=== PATIENT | male | born 1980 | race Caucasian/White ===

== ENCOUNTER 2016-11-24 15:33 | Emergency (ER) | payer SELFPAY ==
--- NOTE | 2016-11-24 16:01 | EDM.PDOC ---
ED HPI GENERAL MEDICAL PROBLEM - General Stated Complaint: SLIPPED AND FELT Time Seen by Provider: 11/24/16 15:51 Source of Information: Reports: Patient History Limitations: Reports: No limitations - History of Present Illness INITIAL COMMENTS - FREE TEXT/NARRATIVE: HISTORY AND PHYSICAL: History of present illness: Patient is a 36-year-old male who presents to the ED for evaluation of injuries that he states he sustained about 1 AM today at [employer] on a freshly waxed floor. He states he slipped landing forward on his arm and knee and then tried to get back up and fell again and try to get back up and fell again. During these episodes he has injured his hip and back and the palms of both hands and the right elbow and both knees and the right ankle. He has been walking around but he states he has been limping because of pain. He did not hit his head or lose consciousness and he denies any neck pain. He is not having thigh or calf pain but has pain in all his joints. At one point he stated that he landed directly on the left knee and twisted the right knee and then his story was that he landed directly on the R knee and twisted the left knee. 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 Review of systems: As per history of present illness and below otherwise all systems reviewed and negative. Past medical history: As per history of present illness and as reviewed below otherwise noncontributory. Surgical history: As per history of present illness and as reviewed below otherwise noncontributory. Social history: No reported history of drug or alcohol abuse. Family history: As per history of present illness and as reviewed below otherwise noncontributory. Physical exam: HEENT: Atraumatic, normocephalic, pupils reactive, negative for conjunctival pallor or scleral icterus, mucous membranes moist, throat clear, neck supple, nontender, trachea midline. Lungs: Clear to auscultation, breath sounds equal bilaterally, chest nontender. Heart: S1S2, regular, negative for clicks, rubs, or JVD. Abdomen: Soft, nondistended, nontender. Negative for masses or hepatosplenomegaly. Negative for costovertebral tenderness. Back: No deformities or step offs or vertebral point tenderness, other than mild in the low lumbar spine. Normal range motion. Pelvis: Stable nontender. Genitourinary: Deferred. Rectal: Deferred. Extremities: Atraumatic, negative for cords or calf pain. Neurovascular unremarkable. Neuro: Awake, alert, oriented. Cranial nerves II through XII unremarkable. Cerebellum unremarkable. Motor and sensory unremarkable throughout. Exam nonfocal. Diagnostics: Xrays - lumbar spine, right elbow, bilateral knees, right ankle Impression: Fall Plan: Patient had no evidence of trauma anywhere. No bruising, swelling, abrasions. He had normal gait, normal range of motion, normal strength. I informed him of his xray findings which were all negative, other than a mild wedge compression at L1. This is not where the patient's pain is and he did not fall on his buttocks so mechanism does not support this injury. I advised rest and antiinflammatories and follow up with PCP as needed. Definitive disposition and diagnosis as appropriate pending reevaluation and review of above. Right Elbow Pain Score (Numeric/FACES): 9 - Related Data Allergies Allergy/AdvReac Type Severity Reaction Status Date / Time metaproterenol [From Alupent] Allergy palpitation Verified 07/17/16 11:50 s Home Meds: Home Meds Albuterol [IJD: Albuterol HFA] 2 puff INH Q6HR PRN #8 gm 07/17/16 [Rx] Albuterol [Ventolin HFA] 07/17/16 [History] traMADol [Ultram] 50 mg PO Q8H PRN #10 tablet 07/17/16 [Rx] Past Medical History HEENT History: Reports: None Cardiovascular History: Reports: None Respiratory History: Reports: Asthma Gastrointestinal History: Reports: None Neurological History: Reports: None Psychiatric History: Reports: None - Past Surgical History HEENT Surgical History: Reports: None Respiratory Surgical History: Reports: None Musculoskeletal Surgical History: Reports: Other (see below) Other Musculoskeletal Surgeries/Procedures:: right hip surgery Social & Family History - Family History Family Medical History: Noncontributory - Tobacco Use Smoking Status *Q: Current Every Day Smoker Years of Tobacco use: 5 Packs/Tins Daily: 0.2 ED ROS GENERAL - Review of Systems Review Of Systems: ROS reveals no pertinent complaints other than HPI. ED EXAM, GENERAL - Physical Exam Exam: See Below (See HPI) Course - Vital Signs Last Recorded V/S: Last Vital Signs Temp 36.9 C 11/24/16 15:46 Pulse 90 11/24/16 15:46 Resp 18 11/24/16 15:46 BP 156/98 H 11/24/16 15:46 Pulse Ox 98 11/24/16 15:46 - Orders/Labs/Meds Orders: Active Orders 24 hr Category Date Time Status Ankle 2V Rt [CR] Stat Exams 11/24/16 16:02 Taken Elbow Min 3V Rt [CR] Stat Exams 11/24/16 16:02 Ordered Knee 3V Lt [CR] Stat Exams 11/24/16 16:02 Ordered Knee 3V Rt [CR] Stat Exams 11/24/16 16:02 Ordered Lumbar Spine 2 or 3V [CR] Stat Exams 11/24/16 16:02 Ordered Departure - Departure Time of Disposition: 17:49 Disposition: Home, Self-Care 01 Condition: good Clinical Impression: Fall Qualifiers: Encounter type: initial encounter Qualified Code(s): W19.XXXA - Unspecified fall, initial encounter Additional Instructions: The following information is given to patients seen in the emergency department who are being discharged to home. This information is to outline your options for follow-up care. We provide all patients seen in our emergency department with a follow-up referral. The need for follow-up, as well as the timing and circumstances, are variable depending upon the specifics of your emergency department visit. If you don't have a primary care physician on staff, we will provide you with a referral. We always advise you to contact your personal physician following an emergency department visit to inform them of the circumstance of the visit and for follow-up with them and/or the need for any referrals to a consulting specialist. The emergency department will also refer you to a specialist when appropriate. This referral assures that you have the opportunity for follow-up care with a specialist. All of these measure are taken in an effort to provide you with optimal care, which includes your follow-up. Under all circumstances we always encourage you to contact your private physician who remains a resource for coordinating your care. When calling for follow-up care, please make the office aware that this follow-up is from your recent emergency room visit. If for any reason you are refused follow-up, please contact the [facility] Emergency Department at and asked to speak to the emergency department charge nurse. [facility] [address] [place] [id number] - My Orders Last 24 Hours: My Active Orders 11/24/16 16:02 Ankle 2V Rt [CR] Stat Elbow Min 3V Rt [CR] Stat Knee 3V Lt [CR] Stat Knee 3V Rt [CR] Stat Lumbar Spine 2 or 3V [CR] Stat - Assessment/Plan Last 24 Hours: My Active Orders 11/24/16 16:02 Ankle 2V Rt [CR] Stat Elbow Min 3V Rt [CR] Stat Knee 3V Lt [CR] Stat Knee 3V Rt [CR] Stat Lumbar Spine 2 or 3V [CR] Stat
[2016-11-24] MEDS ORDERED: Acetaminophen/HYDROcodone 325-5 MG Tab PO ONE (18:05)
[2016-11-24 18:24] VITALS: BP 162/105
--- NOTE | 2016-11-27 14:59 | CR ---
EXAM DATE: 11/24/16 PATIENT'S AGE: 36 Patient: MARÍA MEADOWS Facility: [place], [place] Site . Site : 1980 Study: XRay Knee Bilateral [id number]/24/2017 5:02:12 PM Ordering Physician: Doctor Hobbs Final Report: INDICATION: Fall TECHNIQUE: Three views right left knees COMPARISON: None FINDINGS: Bones: Alignment is normal. No fractures or bone lesions. Joint spaces: Unremarkable. Soft tissues: Unremarkable. IMPRESSION: No evidence of acute trauma involving the right or left knees. Dictated by Salomon Farah MD @ 11/24/2016 5:15:38 PM Dictated by: Salomon Farah MD @ 11/24/2016 17:15:43 (Electronic Signature) Report Signed by Proxy and Original Signed Document filed in the Medical Record. [facility]TD[facility]
--- NOTE | 2016-11-27 15:01 | CR ---
EXAM DATE: 11/24/16 PATIENT'S AGE: 36 Patient: MARÍA MEADOWS Facility: [place], [place] Site . Site : 1980 Study: XRay Spine Lumbar [id number]/24/2017 5:02:37 PM Ordering Physician: Doctor Hobbs Final Report: INDICATION: Fall TECHNIQUE: Lumbar spine 3 view. COMPARISON: None FINDINGS: Bones: Alignment is normal. Mild anterior wedge compression deformity of the L1 vertebral body. Correlate with pain at this level. Joints: Disc spaces and facets are unremarkable. Soft tissues: Unremarkable. IMPRESSION: Mild anterior wedge compression deformity of the L1 vertebral body. Correlate with pain at this level. Dictated by Salomon Farah MD @ 11/24/2016 5:22:18 PM Dictated by: Salomon Farah MD @ 11/24/2016 17:22:21 (Electronic Signature) Report Signed by Proxy and Original Signed Document filed in the Medical Record. [facility]
--- NOTE | 2016-11-27 15:03 | CR ---
EXAM DATE: 11/24/16 PATIENT'S AGE: 36 Patient: MARÍA MEADOWS Facility: [place], [place] Site . Site : 1980 Study: XRay Extremity elbow [id number]/24/2017 5:03:42 PM Ordering Physician: Doctor Hobbs Final Report: INDICATION: fall TECHNIQUE: Right elbow 3 views. COMPARISON: None. FINDINGS: Bones: Alignment is normal. No fractures or bone lesions. Joint spaces: Unremarkable. Soft tissues: Unremarkable. IMPRESSION: Unremarkable Right elbow. Dictated by: Salomon Farah MD @ 11/24/2016 17:23:08 (Electronic Signature) Report Signed by Proxy and Original Signed Document filed in the Medical Record. [facility]
--- NOTE | 2016-11-27 15:03 | CR ---
EXAM DATE: 11/24/16 PATIENT'S AGE: 36 Patient: MARÍA MEADOWS Facility: [place], [place] Site . Site : 1980 Study: XRay Extremity ankle [id number]/24/2017 5:04:14 PM Ordering Physician: Doctor Hobbs Final Report: INDICATION: Twisting injury TECHNIQUE: Two views right ankle COMPARISON: None FINDINGS: Bones: Alignment is normal. No fractures. Dorsal calcaneal spur. Joint spaces: Unremarkable. Soft tissues: Unremarkable. IMPRESSION: No evidence of acute trauma. Dictated by Salomon Farah MD @ 11/24/2016 5:13:50 PM Dictated by: Salomon Farah MD @ 11/24/2016 17:13:59 (Electronic Signature) Report Signed by Proxy and Original Signed Document filed in the Medical Record. [facility]TDD
--- NOTE | 2016-11-27 15:05 | CR ---
EXAM DATE: 11/24/16 PATIENT'S AGE: 36 Patient: MARÍA MEADOWS Facility: [place], [place] Site . Site : 1980 Study: XRay Knee Bilateral [id number]/24/2017 5:02:12 PM Ordering Physician: Doctor Hobbs Final Report: INDICATION: Fall TECHNIQUE: Three views right left knees COMPARISON: None FINDINGS: Bones: Alignment is normal. No fractures or bone lesions. Joint spaces: Unremarkable. Soft tissues: Unremarkable. IMPRESSION: No evidence of acute trauma involving the right or left knees. Dictated by Salomon Farah MD @ 11/24/2016 5:15:38 PM Dictated by: aSlomon Farah MD @ 11/24/2016 17:15:43 (Electronic Signature) Report Signed by Proxy and Original Signed Document filed in the Medical Record. [facility]TDD
== END 2016-11-24 18:18 | disposition home or self-care (01) ==
LOC: MW.ED 15:33
DX: S34.101A Unspecified injury to L1 level of lumbar spinal cord, initial encounter (principal); J45.909 Unspecified asthma, uncomplicated; F17.210 Nicotine dependence, cigarettes, uncomplicated; Z88.8 Allergy status to other drugs, medicaments and biological substances; Z98.890 Other specified postprocedural states; W01.0XXA Fall on same level from slipping, tripping and stumbling without subsequent striking against object, initial encounter
CPT/HCPCS: 72100; 73080; 73562; 73600; 99284; A9270; 99283

== ENCOUNTER 2016-12-29 21:49 | Emergency (ER) | payer SELFPAY ==
--- NOTE | 2016-12-29 22:16 | EDM.PDOC ---
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 Past medical history: As per history of present illness and as reviewed below otherwise noncontributory. Surgical history: As per history of present illness and as reviewed below otherwise noncontributory. Social history: No reported history of drug or alcohol abuse. Family history: As per history of present illness and as reviewed below otherwise noncontributory. Physical exam: HEENT: Atraumatic, normocephalic, pupils reactive, negative for conjunctival pallor or scleral icterus, mucous membranes moist, throat clear, neck supple, nontender, trachea midline. Lungs: Clear to auscultation, breath sounds equal bilaterally, chest nontender. Heart: S1S2, regular, negative for clicks, rubs, or JVD. Abdomen: Soft, nondistended, nontender. Negative for masses or hepatosplenomegaly. Negative for costovertebral tenderness. Pelvis: Stable nontender. Genitourinary: Deferred. Rectal: Deferred. Extremities: Atraumatic, negative for cords or calf pain. Neurovascular unremarkable. Right lower extremity unable to fully assess hip and knee do to pain, he has increased pain with light touch and very little movement of either joint, otherwise neurovascularly intact limited exam due to pain, right knee small superficial abrasion over patella no bruising or ballooning of patella no redness warmth or exudate no open lesion neuro: Awake, alert, oriented. Cranial nerves II through XII unremarkable. Cerebellum unremarkable. Motor and sensory unremarkable throughout. Exam nonfocal. 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 Allergies/ADRs: Allergies metaproterenol [From Alupent] Allergy (Verified 07/17/16 11:50) palpitations Home Medications: Ambulatory Orders Albuterol [IJD: Albuterol HFA] 2 puff INH Q6HR PRN #8 gm 07/17/16 Albuterol [Ventolin HFA] 07/17/16 traMADol [Ultram] 50 mg PO Q8H PRN #10 tablet 07/17/16 Past Medical History HEENT History: Reports: Impaired vision Other HEENT History: wears glasses Cardiovascular History: Reports: None Respiratory History: Reports: Asthma Gastrointestinal History: Reports: None Musculoskeletal History: Reports: Fracture, Other (see below) Other Musculoskeletal History: pelvis fracture Neurological History: Reports: None Psychiatric History: Reports: None - Infectious Disease History Infectious Disease History: Reports: Chicken pox - Past Surgical History HEENT Surgical History: Reports: None Respiratory Surgical History: Reports: None Musculoskeletal Surgical History: Reports: Other (see below) Other Musculoskeletal Surgeries/Procedures:: right hip/pelvic surgery Social & Family History - Family History Family Medical History: Noncontributory - Tobacco Use Smoking Status *Q: Current Every Day Smoker Years of Tobacco use: 15 Packs/Tins Daily: 1.5 Used Tobacco, but Quit: No Second Hand Smoke Exposure: Yes - Caffeine Use Caffeine Use: Reports: Energy drinks - Recreational Drug Use Recreational Drug Use: No Review of Systems - Review of Systems Review Of Systems: ROS reveals no pertinent complaints other than HPI. Trauma Exam - Physical Exam Exam: See Below Course - Vital Signs Last Recorded V/S: Last Vital Signs Temp 37.0 C 12/29/16 23:21 Pulse 81 12/29/16 23:21 Resp 16 12/29/16 23:21 BP 138/95 H 12/29/16 23:21 Pulse Ox 99 12/29/16 23:21 - Orders/Labs/Meds Orders: Active Orders 24 hr Category Date Time Status Hip Min 2V or 3V Rt [CR] Stat Exams 12/29/16 22:18 Taken Hip wo Cont Rt [CT] Stat Exams 12/29/16 23:36 Ordered Knee 3V Rt [CR] Stat Exams 12/29/16 22:18 Taken Meds: Medications Discontinued Medications Generic Name Dose Route Start Last Admin Trade Name Mani PRN Reason Stop Dose Admin Hydrocodone Bitart/Acetaminophen 1 tab 12/29/16 23:35 12/29/16 23:40 [place] 325-7.5 Mg PO 12/29/16 23:36 1 tab NOW STA Administration Ketorolac Tromethamine 60 mg 12/29/16 22:18 12/29/16 22:28 Toradol IM 12/29/16 22:19 60 mg ONETIME ONE Administration Departure - Departure Time of Disposition: 00:40 Disposition: Home, Self-Care 01 Condition: good Clinical Impression: Right hip pain, Right knee pain Referrals: PCP,None [Primary Care Provider] - Forms: ED Department Discharge Additional Instructions: Medication as prescribed Return if symptoms persist or worsen No driving on narcotic medication Knee immobilizer Crutches Nonweightbearing Ice 20 minute intervals 3 times daily Followup with orthopedist, call for followup appointment as below [facility] [address] [place] [address] my orthopedic The following information is given to patients seen in the emergency department who are being discharged to home. This information is to outline your options for follow-up care. We provide all patients seen in our emergency department with a follow-up referral. The need for follow-up, as well as the timing and circumstances, are variable depending upon the specifics of your emergency department visit. If you don't have a primary care physician on staff, we will provide you with a referral. We always advise you to contact your personal physician following an emergency department visit to inform them of the circumstance of the visit and for follow-up with them and/or the need for any referrals to a consulting specialist. The emergency department will also refer you to a specialist when appropriate. This referral assures that you have the opportunity for follow-up care with a specialist. All of these measure are taken in an effort to provide you with optimal care, which includes your follow-up. Under all circumstances we always encourage you to contact your private physician who remains a resource for coordinating your care. When calling for follow-up care, please make the office aware that this follow-up is from your recent emergency room visit. If for any reason you are refused follow-up, please contact the [facility] emergency department at and asked to speak to the emergency department charge nurse. - My Orders Last 24 Hours: My Active Orders 12/29/16 22:18 Hip Min 2V or 3V Rt [CR] Stat Knee 3V Rt [CR] Stat 12/29/16 23:36 Hip wo Cont Rt [CT] Stat - Assessment/Plan Last 24 Hours: My Active Orders 12/29/16 22:18 Hip Min 2V or 3V Rt [CR] Stat Knee 3V Rt [CR] Stat 12/29/16 23:36 Hip wo Cont Rt [CT] Stat
[2016-12-29] MEDS ORDERED: Ketorolac 60 MG/2 ML SDV IM ONE (22:18)
[2016-12-29] MEDS ORDERED: Acetaminophen/HYDROcodone 325-7.5 MG Tab PO STA (23:35)
[2016-12-30 01:13] VITALS: BP 150/90
--- NOTE | 2016-12-31 17:52 | CR ---
EXAM DATE: 12/29/16 PATIENT'S AGE: 36 Patient: MARÍA MEADOWS Facility: [place], [place] Site . Site : 1980 Study: XRay Hip Right [id number]/28/2017 11:01:35 PM Ordering Physician: Basil Miranda Final Report: Indication: Pain after fall Technique: Two-view right hip Comparison: None Findings: There are three surgical screws projecting over the right acetabulum. No femur fracture identified. Visualized portions of the remainder of the pelvic ring are intact. Impression: No acute abnormality. Dictated by Josefina Eubanks MD @ Dec 29 2016 11:17PM (Electronic Signature) Report Signed by Proxy. JOHN
--- NOTE | 2016-12-31 17:52 | CR ---
EXAM DATE: 12/29/16 PATIENT'S AGE: 36 Patient: MARÍA MEADOWS Facility: [place], [place] Site . Site : 1980 Study: XRay Knee Right [id number]/28/2017 11:01:16 PM Ordering Physician: Basil Miranda Final Report: Indication: Pain after fall Technique: Three views right knee Comparison: None Fin none dings: Bones: Alignment is normal. No fractures or bone lesions. Joint spaces: Unremarkable. Soft tissues: Unremarkable. Impression: Negative. Dictated by Josefina Eubanks MD @ Dec 29 2016 11:16PM (Electronic Signature) Report Signed by Proxy. JOHN
--- NOTE | 2016-12-31 17:54 | CT ---
EXAM DATE: 12/29/16 PATIENT'S AGE: 36 Patient: MARÍA MEADOWS Facility: [place], [place] Site . Site : 1980 Study: CT Hip Right [id number]/29/2017 12:08:23 AM Ordering Physician: Christopher Final Report: HISTORY: Pain after fall. TECHNIQUE: Pelvis was scanned using helical technique at 2 mm intervals in bone algorithm. Reconstructed axial, sagittal and coronal images of the right hip were obtained. FINDINGS: The bladder is distended. There is no free air or fluid appreciated within the pelvis. The pelvic ring and sacral ala are intact. There are 3 cortical screws fixing the posterior right acetabulum. Hardware is intact. No acute fracture line identified. There is mild to moderate degenerative changes seen within the right hip. Right femur appears intact. IMPRESSION: 1. Prior ORIF of the posterior right acetabulum. Hardware is intact. 2. Mild to moderate degenerative changes within the right hip. 3. No acute fracture line identified. Dictated by Amparo Mojica MD @ 12/30/2016 12:31:21 AM Dictated by: Amparo Mojica MD @ 12/30/2016 00:31:30 (Electronic Signature) Report Signed by Proxy. JOHN
== END 2016-12-30 01:12 | disposition home or self-care (01) ==
LOC: MW.ED 21:49
DX: S80.01XA Contusion of right knee, initial encounter (principal); S70.01XA Contusion of right hip, initial encounter; W17.89XA Other fall from one level to another, initial encounter
CPT/HCPCS: 73502; 73562; 73700; 96372; 99283; A9270; J1885

== ENCOUNTER 2017-12-22 14:53 | Emergency (ER) | payer SELFPAY ==
--- NOTE | 2017-12-22 15:12 | EDM.PDOC ---
ED HPI GENERAL MEDICAL PROBLEM - General Chief Complaint: Genitourinary Problem Stated Complaint: PT HAS A CYST THAT HE SAY COULD POSSILBY BE INFECT Time Seen by Provider: 12/22/17 15:09 - History of Present Illness INITIAL COMMENTS - FREE TEXT/NARRATIVE: HISTORY AND PHYSICAL: History of present illness: Patient 37-year-old male presents with a concern of rash on the dorsal aspect of his penis he does have history of eczema and has had similar episodes in the past this is somewhat different in character per the patient is in no urethral discharge no discomfort with urination and no other complaints. Review of systems: As per history of present illness and below otherwise all systems reviewed and negative. Past medical history: As per history of present illness and as reviewed below otherwise noncontributory. Surgical history: As per history of present illness and as reviewed below otherwise noncontributory. Social history: No reported history of drug or alcohol abuse. Family history: As per history of present illness and as reviewed below otherwise noncontributory. Physical exam: HEENT: Atraumatic, normocephalic, pupils reactive, negative for conjunctival pallor or scleral icterus, mucous membranes moist, throat clear, neck supple, nontender, trachea midline. Lungs: Clear to auscultation, breath sounds equal bilaterally, chest nontender. Heart: S1S2, regular, negative for clicks, rubs, or JVD. Abdomen: Soft, nondistended, nontender. Negative for masses or hepatosplenomegaly. Negative for costovertebral tenderness. Pelvis: Stable nontender. Genitourinary: Deferred. Rectal: Testes normal patient does have a nonspecific maculopapular type rash on the dorsal aspect just proximal to the glans. This does not have any vesicles in his nontender and does not appear cellulitic Extremities: Atraumatic, negative for cords or calf pain. Neurovascular unremarkable. Neuro: Awake, alert, oriented. Cranial nerves II through XII unremarkable. Cerebellum unremarkable. Motor and sensory unremarkable throughout. Exam nonfocal. Diagnostics: UA urine culture sensitivity urine for GC and Chlamydia Therapeutics: None Impression: #1 penile rash etiology be determined 2 history of eczema Definitive disposition and diagnosis as appropriate pending reevaluation and review of above. testicle/groin Pain Score (Numeric/FACES): 8 - Related Data Allergies Allergy/AdvReac Type Severity Reaction Status Date / Time metaproterenol [From Alupent] Allergy palpitation Verified 07/17/16 11:50 s Home Meds: Home Meds Albuterol [IJD: Albuterol HFA] 2 puff INH Q6HR PRN #8 gm 07/17/16 [Rx] Past Medical History HEENT History: Reports: Impaired Vision Other HEENT History: wears glasses Cardiovascular History: Reports: None Respiratory History: Reports: Asthma Gastrointestinal History: Reports: None Genitourinary History: Reports: Other (See Below) Other Genitourinary History: Cysts to Epidydimis Musculoskeletal History: Reports: Fracture, Other (See Below) Other Musculoskeletal History: pelvis fracture Neurological History: Reports: None Psychiatric History: Reports: None - Infectious Disease History Infectious Disease History: Reports: Chicken Pox - Past Surgical History Respiratory Surgical History: Reports: None Musculoskeletal Surgical History: Reports: Other (See Below) Social & Family History - Family History Family Medical History: Noncontributory - Tobacco Use Smoking Status *Q: Current Every Day Smoker Years of Tobacco use: 13 Packs/Tins Daily: 1 Used Tobacco, but Quit: No Second Hand Smoke Exposure: Yes - Caffeine Use Caffeine Use: Reports: Energy Drinks - Recreational Drug Use Recreational Drug Use: No ED ROS GENERAL - Review of Systems Review Of Systems: ROS reveals no pertinent complaints other than HPI. ED EXAM, GENERAL - Physical Exam Exam: See Below (The dictation) Course - Vital Signs Last Recorded V/S: Last Vital Signs Temp 36.3 C 12/22/17 15:00 Pulse 95 12/22/17 15:00 Resp 18 12/22/17 15:00 BP 167/117 H 12/22/17 15:00 Pulse Ox 96 12/22/17 15:00 - Orders/Labs/Meds Orders: Active Orders 24 hr Category Date Time Status CHLAMYDIA AND GONORRHEA BY TMA Stat Lab 12/22/17 15:05 Ordered CULTURE URINE [RM] Stat Lab 12/22/17 15:05 Ordered UA W/MICROSCOPIC [URIN] Stat Lab 12/22/17 15:05 Ordered Departure - Departure Time of Disposition: 15:11 Disposition: Home, Self-Care 01 Condition: Good Clinical Impression: Rash of genital area, Eczema - Discharge Information Referrals: PCP,None [Primary Care Provider] - Additional Instructions: The following information is given to patients seen in the emergency department who are being discharged to home. This information is to outline your options for follow-up care. We provide all patients seen in our emergency department with a follow-up referral. The need for follow-up, as well as the timing and circumstances, are variable depending upon the specifics of your emergency department visit. If you don't have a primary care physician on staff, we will provide you with a referral. We always advise you to contact your personal physician following an emergency department visit to inform them of the circumstance of the visit and for follow-up with them and/or the need for any referrals to a consulting specialist. The emergency department will also refer you to a specialist when appropriate. This referral assures that you have the opportunity for followup care with a specialist. All of these measure are taken in an effort to provide you with optimal care, which includes your followup. Under all circumstances we always encourage you to contact your private physician who remains a resource for coordinating your care. When calling for followup care, please make the office aware that this follow-up is from your recent emergency room visit. If for any reason you are refused follow-up, please contact the [facility] emergency department at and asked to speak to the emergency department charge nurse. [facility] Specialty Care - Urology [address] [place] [id number] Triamcinolone as directed follow-up private medical doctor/urology as needed as discussed return as needed as discussed - My Orders Last 24 Hours: My Active Orders 12/22/17 15:05 CHLAMYDIA AND GONORRHEA BY TMA Stat CULTURE URINE [RM] Stat UA W/MICROSCOPIC [URIN] Stat - Assessment/Plan Last 24 Hours: My Active Orders 12/22/17 15:05 CHLAMYDIA AND GONORRHEA BY TMA Stat CULTURE URINE [RM] Stat UA W/MICROSCOPIC [URIN] Stat
[2017-12-22 16:13] VITALS: BP 151/115
== END 2017-12-22 16:03 | disposition home or self-care (01) ==
LOC: MW.ED 14:53
DX: L30.9 Dermatitis, unspecified (principal); F17.210 Nicotine dependence, cigarettes, uncomplicated; Z88.8 Allergy status to other drugs, medicaments and biological substances
CPT/HCPCS: 81001; 87086; 87491; 87591; 99283